=== PATIENT | male | born 1985 | race Caucasian/White ===

== ENCOUNTER 2022-07-08 12:41 | Inpatient (IN) | payer OTHER ==
[~2022-07-08] VITALS: Ht 170.2 cm; Wt 56.2 kg
[~2022-07-08 12:41] MED LIST: BACLOFEN10 MG PO; BISOPROLOL-HCT1 EAC2 PO; CUBICIN500 MG/VIA IV; CYMBALTA60 MG PO; DIAZEPAM5 MG PO; DIPHENHYDRAMINE50 M1 PO; FENTANYL1 EAC1 TOP; HYDROMORPHONE HC2 MG PO; KLONOPIN1 MG PO; M.V.I. ADULT10 ML; NAPROXEN500 MG PO; NICODERM CQ1 EAC1 TOP; SOMA350 MG PO; TOPAMAX25 MG PO; TYLENOL # 31 EA PO; ZANAFLEX2 M1 PO; ZOSYN 3.373.375 GM/5 IVP
[2022-07-08] MEDS ORDERED: SODIUM CHLORIDE 0.9% 1000ML 1,000 ML IV STA (14:20)
[2022-07-08 15:04] LABS: BASOPHILS # (AUTO) 0.1 (0.0-0.1); BASOPHILS % 0.5 % (0.0-1.0); EOSINOPHILS # (AUTO) 0.4 (0.0-0.4); EOSINOPHILS % 3.9 % (0.0-6.0); HEMATOCRIT 34.2 % (38.2-49.6); HEMOGLOBIN 11.3 g/dL (14.0-18.0); LYMPHOCYTES % 9.8 % (18.0-39.1); MEAN CORPUSCULAR HEMOGLOBIN 27.9 pg (28-32); MEAN CORPUSCULAR VOLUME 84.4 fL (81-99); MONOCYTES # (AUTO) 0.9 (0.2-0.8); MONOCYTES % 8.6 % (4.4-11.3); NEUTROPHILS # (AUTO) 7.8 (2.1-6.9); NEUTROPHILS % 76.7 % (38.7-80.0); PLATELET COUNT 304 x10e3/uL (140-360); RED BLOOD COUNT 4.05 x10e6/uL (4.3-5.7); RED CELL DISTRIBUTION WIDTH 13.4 % (11.7-14.4)
[2022-07-08 15:11] LABS: INR 1.01; PROTHROMBIN TIME 14.2 seconds (11.9-14.5)
[2022-07-08 15:12] LABS: PARTIAL THROMBOPLASTIN TIME 43.7 seconds (23.8-35.5)
[2022-07-08] MEDS ORDERED: ONDANSETRON HCL INJ 2MG/ML 2ML 2 MG/ML VIAL IV STA (15:13)
[2022-07-08 15:22] LABS: ALBUMIN 3.4 g/dL (3.5-5.0); ALBUMIN/GLOBULIN RATIO 0.8 (0.8-2.0); CALCIUM 8.9 mg/dL (8.4-10.2); CREATININE, SERUM 0.7 mg/dL (0.72-1.25)
[2022-07-08] MEDS: LINEZOLID 600 MG/D5W 300ML 300 ML IV SCH ×2 (16:11→21:12)
[2022-07-08] MEDS ORDERED: Morphine 4mg INJECTION 4 MG/ML INJ IV ONE (17:00)
[2022-07-08 19:30] VITALS: BP 144/99
[2022-07-08] MEDS: ONDANSETRON HCL INJ 2MG/ML 2ML 2 MG/ML VIAL IV PRN (19:44)
[2022-07-08] MEDS: SODIUM CHLORIDE 0.9% 1000ML 1,000 ML IV SCH (19:53)
[2022-07-08 20:00] VITALS: BP 144/99
[2022-07-08] MEDS: Morphine 4mg INJECTION 4 MG/ML INJ IV PRN (20:22)
[2022-07-08 21:00] VITALS: BP 144/99
[2022-07-08] MEDS: TIZANIDINE HCL 4 MG TAB PO SCH (21:12)
[2022-07-09] VITALS (8 sets, daily range): BP systolic 111–136; BP diastolic 75–89
[2022-07-09] MEDS: ONDANSETRON HCL INJ 2MG/ML 2ML 2 MG/ML VIAL IV PRN ×6 (00:19→22:23)
[2022-07-09] MEDS: Morphine 4mg INJECTION 4 MG/ML INJ IV PRN ×3 (00:23→08:26)
[2022-07-09] MEDS: SODIUM CHLORIDE 0.9% 1000ML 1,000 ML IV SCH ×2 (06:15→12:40)
[2022-07-09 07:18] LABS: BASOPHILS % 0.2 % (0.0-1.0); EOSINOPHILS # (AUTO) 0.4 (0.0-0.4); HEMATOCRIT 34.4 % (38.2-49.6); HEMOGLOBIN 10.8 g/dL (14.0-18.0); LYMPHOCYTES % 11.6 % (18.0-39.1); MEAN CORPUSCULAR HEMOGLOBIN 27.8 pg (28-32); MEAN CORPUSCULAR HGB CONC 31.4 g/dL (31-35); MEAN CORPUSCULAR VOLUME 88.7 fL (81-99); MONOCYTES # (AUTO) 0.8 (0.2-0.8); MONOCYTES % 10.1 % (4.4-11.3); NEUTROPHILS % 72.9 % (38.7-80.0); PLATELET COUNT 296 x10e3/uL (140-360); RED BLOOD COUNT 3.88 x10e6/uL (4.3-5.7); RED CELL DISTRIBUTION WIDTH 13.1 % (11.7-14.4)
[2022-07-09 07:54] LABS: ALBUMIN/GLOBULIN RATIO 0.8 (0.8-2.0); ANION GAP 14.9 mmol/L (8-16); CALCIUM 8.7 mg/dL (8.4-10.2); CREATININE, SERUM 0.79 mg/dL (0.72-1.25); POTASSIUM 3.9 mmol/L (3.5-5.1)
[2022-07-09] MEDS: TIZANIDINE HCL 4 MG TAB PO SCH ×3 (08:28→21:27)
[2022-07-09] MEDS: DULOXETINE HCL 30 MG DELAYED RELEASE PO SCH (08:29)
[2022-07-09] MEDS: BISOPROLOL FUMARATE 10 MG TAB PO SCH (08:29)
[2022-07-09] MEDS: HYDROCHLOROTHIAZIDE 25 MG TAB PO SCH (08:29)
[2022-07-09] MEDS: LINEZOLID 600 MG/D5W 300ML 300 ML IV SCH ×2 (08:33→21:24)
[2022-07-09] MEDS: NICOTINE 14 MG/EA PATCH TOP SCH (08:36)
[2022-07-09] MEDS ORDERED: HCTZ PO SCH (09:00)
[2022-07-09] MEDS ORDERED: [UNRECOGNIZED DRUG - OTHER] PO SCH (09:00)
[2022-07-09] MEDS ORDERED: BISOPROLOL FUMARATE PO SCH (09:00)
[2022-07-09] MEDS: DIAZEPAM 5 MG TAB PO SCH ×2 (09:43→17:45)
[2022-07-09] MEDS ORDERED: HYDROMORPHONE 1MG/1ML INJ IV PRN (11:45)
[2022-07-09] MEDS: ENOXAPARIN SOD INJ 40 MG/0.4 ML SYR SC SCH (16:32)
[2022-07-09] MEDS: HYDROMORPHONE 1MG/1ML INJ IV PRN ×2 (16:33→22:32)
[2022-07-10] VITALS: BP 94/68
[2022-07-10] MEDS: ONDANSETRON HCL INJ 2MG/ML 2ML 2 MG/ML VIAL IV PRN ×5 (03:08→20:48)
[2022-07-10] MEDS: HYDROMORPHONE 1MG/1ML INJ IV PRN ×5 (03:11→20:48)
[2022-07-10] MEDS: SODIUM CHLORIDE 0.9% 1000ML 1,000 ML IV SCH ×2 (03:19→16:24)
[2022-07-10 04:00] VITALS: BP_SYST 121; BP_SYST 94; BP_DIAS 68; BP_DIAS 82
[2022-07-10 06:05] LABS: ANION GAP 14.8 mmol/L (8-16); CALCIUM 8.8 mg/dL (8.4-10.2); CREATININE, SERUM 0.8 mg/dL (0.72-1.25); POTASSIUM 3.8 mmol/L (3.5-5.1)
[2022-07-10 07:55] VITALS: BP 131/98
[2022-07-10 08:30] VITALS: BP 131/98
[2022-07-10] MEDS: NICOTINE 14 MG/EA PATCH TOP SCH (09:00)
[2022-07-10] MEDS: HYDROCHLOROTHIAZIDE 25 MG TAB PO SCH (09:11)
[2022-07-10] MEDS: BISOPROLOL FUMARATE 10 MG TAB PO SCH (09:12)
[2022-07-10] MEDS: LINEZOLID 600 MG/D5W 300ML 300 ML IV SCH ×2 (09:13→20:46)
[2022-07-10] MEDS: DULOXETINE HCL 30 MG DELAYED RELEASE PO SCH (09:13)
[2022-07-10] MEDS: TIZANIDINE HCL 4 MG TAB PO SCH ×3 (09:13→20:48)
[2022-07-10] MEDS: DIAZEPAM 5 MG TAB PO SCH ×2 (09:13→16:59)
[2022-07-10 12:00] VITALS: BP 104/69
[2022-07-10] MEDS: ENOXAPARIN SOD INJ 40 MG/0.4 ML SYR SC SCH (17:00)
[2022-07-10 20:02] VITALS: BP 104/69
[2022-07-11] VITALS (8 sets, daily range): BP systolic 104–132; BP diastolic 71–98
[2022-07-11] MEDS: HYDROMORPHONE 1MG/1ML INJ IV PRN ×6 (02:23→23:35)
[2022-07-11] MEDS: ONDANSETRON HCL INJ 2MG/ML 2ML 2 MG/ML VIAL IV PRN ×3 (07:12→20:32)
[2022-07-11] MEDS: LINEZOLID 600 MG/D5W 300ML 300 ML IV SCH ×2 (08:14→20:31)
[2022-07-11] MEDS: DULOXETINE HCL 30 MG DELAYED RELEASE PO SCH (08:14)
[2022-07-11] MEDS: HYDROCHLOROTHIAZIDE 25 MG TAB PO SCH (08:14)
[2022-07-11] MEDS: BISOPROLOL FUMARATE 10 MG TAB PO SCH (08:15)
[2022-07-11] MEDS: DIAZEPAM 5 MG TAB PO SCH ×2 (08:19→17:00)
[2022-07-11] MEDS: TIZANIDINE HCL 4 MG TAB PO SCH ×3 (08:20→20:31)
[2022-07-11] MEDS: NICOTINE 14 MG/EA PATCH TOP SCH (08:21)
[2022-07-11] MEDS: ENOXAPARIN SOD INJ 40 MG/0.4 ML SYR SC SCH (17:00)
[2022-07-11] MEDS: SODIUM CHLORIDE 0.9% 1000ML 1,000 ML IV SCH (18:50)
[2022-07-12] MEDS: HYDROMORPHONE 1MG/1ML INJ IV PRN ×7 (02:38→21:56)
[2022-07-12] MEDS: SODIUM CHLORIDE 0.9% 1000ML 1,000 ML IV SCH ×3 (05:52→17:35)
[2022-07-12 07:34] VITALS: BP 122/87
[2022-07-12] MEDS: ONDANSETRON HCL INJ 2MG/ML 2ML 2 MG/ML VIAL IV PRN ×3 (08:53→21:57)
[2022-07-12 09:00] VITALS: BP 122/87
[2022-07-12] MEDS: NICOTINE 14 MG/EA PATCH TOP SCH (09:00)
[2022-07-12] MEDS: DULOXETINE HCL 30 MG DELAYED RELEASE PO SCH (09:10)
[2022-07-12] MEDS: DIAZEPAM 5 MG TAB PO SCH ×2 (09:10→17:37)
[2022-07-12] MEDS: TIZANIDINE HCL 4 MG TAB PO SCH ×3 (09:10→17:37)
[2022-07-12] MEDS: LINEZOLID 600 MG/D5W 300ML 300 ML IV SCH ×2 (09:11→21:00)
[2022-07-12 11:37] VITALS: BP 109/60
[2022-07-12 15:39] VITALS: BP 116/90
[2022-07-12] MEDS: EPSOM SALT 454 GM POWD TOP SCH ×2 (15:40→21:00)
[2022-07-12] MEDS: ENOXAPARIN SOD INJ 40 MG/0.4 ML SYR SC SCH (17:37)
[2022-07-12 20:00] VITALS: BP 99/69
[2022-07-13] VITALS (7 sets, daily range): BP systolic 111–132; BP diastolic 61–84
[2022-07-13] MEDS: HYDROMORPHONE 1MG/1ML INJ IV PRN ×8 (01:13→22:53)
[2022-07-13] MEDS: SODIUM CHLORIDE 0.9% 1000ML 1,000 ML IV SCH ×2 (06:15→16:15)
[2022-07-13] MEDS: DULOXETINE HCL 30 MG DELAYED RELEASE PO SCH (07:39)
[2022-07-13] MEDS: LINEZOLID 600 MG/D5W 300ML 300 ML IV SCH ×2 (07:39→20:02)
[2022-07-13] MEDS: DIAZEPAM 5 MG TAB PO SCH ×2 (07:40→17:09)
[2022-07-13] MEDS: TIZANIDINE HCL 4 MG TAB PO SCH ×3 (07:41→20:01)
[2022-07-13] MEDS: EPSOM SALT 454 GM POWD TOP SCH ×3 (07:44→19:52)
[2022-07-13] MEDS: NICOTINE 14 MG/EA PATCH TOP SCH (07:46)
[2022-07-13] MEDS: ONDANSETRON HCL INJ 2MG/ML 2ML 2 MG/ML VIAL IV PRN ×3 (10:45→19:53)
[2022-07-13] MEDS: ENOXAPARIN SOD INJ 40 MG/0.4 ML SYR SC SCH (17:10)
[2022-07-14] VITALS (7 sets, daily range): BP systolic 102–162; BP diastolic 67–98
[2022-07-14] MEDS: ONDANSETRON HCL INJ 2MG/ML 2ML 2 MG/ML VIAL IV PRN ×4 (01:30→22:24)
[2022-07-14] MEDS: HYDROMORPHONE 1MG/1ML INJ IV PRN ×8 (01:30→22:26)
[2022-07-14] MEDS ORDERED: ACETAMINOPHEN 1000 MG/100 ML 100 ML IV ONE (06:20)
[2022-07-14] MEDS ORDERED: MUPIROCIN 2% OINT 22 GM TUBE ONE (06:26)
[2022-07-14] MEDS ORDERED: BUPIVACAINE HCL 0.5% INJ 30 ML VIAL INJ ONE (06:26)
[2022-07-14] MEDS ORDERED: HYDROMORPHONE 1MG/1ML INJ ONE (07:47)
[2022-07-14] MEDS: LINEZOLID 600 MG/D5W 300ML 300 ML IV SCH ×2 (08:56→22:24)
[2022-07-14] MEDS: DIAZEPAM 5 MG TAB PO SCH ×2 (08:57→16:55)
[2022-07-14] MEDS: TIZANIDINE HCL 4 MG TAB PO SCH ×3 (08:57→21:30)
[2022-07-14] MEDS: DULOXETINE HCL 30 MG DELAYED RELEASE PO SCH (08:57)
[2022-07-14] MEDS: NICOTINE 14 MG/EA PATCH TOP SCH (08:58)
[2022-07-14] MEDS: EPSOM SALT 454 GM POWD TOP SCH ×3 (08:59→21:00)
[2022-07-14] MEDS: SODIUM CHLORIDE 0.9% 1000ML 1,000 ML IV SCH ×4 (08:59→22:24)
[2022-07-14] MEDS ORDERED: Morphine 10mg syringe 10 MG/ML INJ ONE (12:17)
[2022-07-14] MEDS ORDERED: FENTANYL CITRATE/PF 100MCG/2 ML INJ ONE (12:17)
[2022-07-14] MEDS ORDERED: MIDAZOLAM HCL 2 MG/2 ML VIAL ONE (12:17)
[2022-07-14] MEDS ORDERED: DEXAMETHASONE SOD PHOS INJ 4 MG/ML SDV ONE (13:10)
[2022-07-14] MEDS ORDERED: GLYCOPYRROLATE INJ 0.2 MG/ML VIAL ONE (13:10)
[2022-07-14] MEDS ORDERED: LIDOCAINE HCL 2% LOCAL INJ 5 ML SDV VIAL INJ ONE (13:10)
[2022-07-14] MEDS ORDERED: ONDANSETRON HCL INJ 2MG/ML 2ML 2 MG/ML VIAL ONE (13:10)
[2022-07-14] MEDS ORDERED: PROPOFOL IV EMULSION 10 MG/ML 20 ML VIAL ONE (13:10)
[2022-07-14] MEDS ORDERED: SEVOFLURANE INHAL SOLN 250 ML PEN BTL ONE (13:10)
[2022-07-14] MEDS ORDERED: POVIDONE IODINE 0.05% 0.05 % ML PO ONE (13:10)
[2022-07-14] MEDS: ENOXAPARIN SOD INJ 40 MG/0.4 ML SYR SC SCH (16:54)
[2022-07-15] VITALS (8 sets, daily range): BP systolic 112–140; BP diastolic 62–98
[2022-07-15] MEDS: HYDROMORPHONE 1MG/1ML INJ IV PRN ×7 (01:47→21:02)
[2022-07-15 07:58] LABS: BASOPHILS % 0.1 % (0.0-1.0); EOSINOPHILS % 0.3 % (0.0-6.0); HEMATOCRIT 33.4 % (38.2-49.6); LYMPHOCYTES # (AUTO) 0.9 (1.0-3.2); MEAN CORPUSCULAR HEMOGLOBIN 27.6 pg (28-32); MEAN CORPUSCULAR HGB CONC 32.9 g/dL (31-35); MEAN CORPUSCULAR VOLUME 83.9 fL (81-99); MONOCYTES # (AUTO) 0.5 (0.2-0.8); MONOCYTES % 6.2 % (4.4-11.3); NEUTROPHILS # (AUTO) 6.5 (2.1-6.9); PLATELET COUNT 288 x10e3/uL (140-360); RED BLOOD COUNT 3.98 x10e6/uL (4.3-5.7); RED CELL DISTRIBUTION WIDTH 13.2 % (11.7-14.4)
[2022-07-15] MEDS: ONDANSETRON HCL INJ 2MG/ML 2ML 2 MG/ML VIAL IV PRN ×5 (08:03→21:03)
[2022-07-15 08:14] LABS: ANION GAP 13.7 mmol/L (8-16); CALCIUM 9.1 mg/dL (8.4-10.2); CREATININE, SERUM 0.83 mg/dL (0.72-1.25); MAGNESIUM 1.6 MG/DL (1.3-2.1); PHOSPHORUS 2.7 MG/DL (2.3-4.7); POTASSIUM 3.7 mmol/L (3.5-5.1)
[2022-07-15] MEDS: SODIUM CHLORIDE 0.9% 1000ML 1,000 ML IV SCH ×2 (08:15→16:42)
[2022-07-15] MEDS: EPSOM SALT 454 GM POWD TOP SCH ×3 (09:00→21:00)
[2022-07-15] MEDS: NICOTINE 14 MG/EA PATCH TOP SCH (09:05)
[2022-07-15] MEDS: DIAZEPAM 5 MG TAB PO SCH ×2 (09:05→16:41)
[2022-07-15] MEDS: DULOXETINE HCL 30 MG DELAYED RELEASE PO SCH (09:06)
[2022-07-15] MEDS: TIZANIDINE HCL 4 MG TAB PO SCH ×3 (09:06→21:00)
[2022-07-15] MEDS: LINEZOLID 600 MG/D5W 300ML 300 ML IV SCH ×2 (09:07→21:00)
[2022-07-15] MEDS: ACETAMINOPHEN/CODEINE 300MG - 30MG TAB PO PRN ×2 (11:18→11:21)
[2022-07-15] MEDS: ENOXAPARIN SOD INJ 40 MG/0.4 ML SYR SC SCH (16:41)
[2022-07-16] VITALS (8 sets, daily range): BP systolic 116–146; BP diastolic 74–95
[2022-07-16] MEDS: HYDROMORPHONE 1MG/1ML INJ IV PRN ×9 (00:10→23:15)
[2022-07-16] MEDS: SODIUM CHLORIDE 0.9% 1000ML 1,000 ML IV SCH ×4 (05:01→21:56)
[2022-07-16 06:25] LABS: BASOPHILS % 0.5 % (0.0-1.0); EOSINOPHILS # (AUTO) 0.3 (0.0-0.4); EOSINOPHILS % 4.6 % (0.0-6.0); HEMATOCRIT 35.3 % (38.2-49.6); HEMOGLOBIN 11.1 g/dL (14.0-18.0); LYMPHOCYTES # (AUTO) 1.2 (1.0-3.2); LYMPHOCYTES % 20.3 % (18.0-39.1); MEAN CORPUSCULAR HEMOGLOBIN 28.1 pg (28-32); MEAN CORPUSCULAR HGB CONC 31.4 g/dL (31-35); MEAN CORPUSCULAR VOLUME 89.4 fL (81-99); MONOCYTES # (AUTO) 0.5 (0.2-0.8); MONOCYTES % 8.2 % (4.4-11.3); NEUTROPHILS # (AUTO) 3.9 (2.1-6.9); NEUTROPHILS % 66.1 % (38.7-80.0); PLATELET COUNT 264 x10e3/uL (140-360); RED BLOOD COUNT 3.95 x10e6/uL (4.3-5.7); RED CELL DISTRIBUTION WIDTH 13.2 % (11.7-14.4)
[2022-07-16 06:46] LABS: ANION GAP 12.7 mmol/L (8-16); CALCIUM 8.6 mg/dL (8.4-10.2); CREATININE, SERUM 0.98 mg/dL (0.72-1.25); MAGNESIUM 1.5 MG/DL (1.3-2.1); PHOSPHORUS 3.3 MG/DL (2.3-4.7); POTASSIUM 3.7 mmol/L (3.5-5.1)
[2022-07-16] MEDS: NICOTINE 14 MG/EA PATCH TOP SCH (09:00)
[2022-07-16] MEDS: EPSOM SALT 454 GM POWD TOP SCH ×3 (09:00→21:00)
[2022-07-16] MEDS: DULOXETINE HCL 30 MG DELAYED RELEASE PO SCH (09:52)
[2022-07-16] MEDS: TIZANIDINE HCL 4 MG TAB PO SCH ×3 (09:52→21:00)
[2022-07-16] MEDS: LINEZOLID 600 MG/D5W 300ML 300 ML IV SCH ×2 (09:52→21:55)
[2022-07-16] MEDS: DIAZEPAM 5 MG TAB PO SCH ×2 (10:47→16:53)
[2022-07-17] VITALS: BP 119/75
[2022-07-17] MEDS: HYDROMORPHONE 1MG/1ML INJ IV PRN ×6 (02:15→17:58)
[2022-07-17 04:00] VITALS: BP 133/81
[2022-07-17 06:33] LABS: BASOPHILS % 0.6 % (0.0-1.0); EOSINOPHILS # (AUTO) 0.4 (0.0-0.4); EOSINOPHILS % 6.6 % (0.0-6.0); HEMATOCRIT 32.6 % (38.2-49.6); HEMOGLOBIN 10.5 g/dL (14.0-18.0); LYMPHOCYTES # (AUTO) 1.1 (1.0-3.2); LYMPHOCYTES % 19.9 % (18.0-39.1); MEAN CORPUSCULAR HEMOGLOBIN 27.5 pg (28-32); MEAN CORPUSCULAR HGB CONC 32.2 g/dL (31-35); MEAN CORPUSCULAR VOLUME 85.3 fL (81-99); MONOCYTES # (AUTO) 0.6 (0.2-0.8); MONOCYTES % 10.1 % (4.4-11.3); NEUTROPHILS # (AUTO) 3.4 (2.1-6.9); NEUTROPHILS % 62.6 % (38.7-80.0); PLATELET COUNT 217 x10e3/uL (140-360); RED BLOOD COUNT 3.82 x10e6/uL (4.3-5.7); RED CELL DISTRIBUTION WIDTH 13.5 % (11.7-14.4)
[2022-07-17] MEDS: ONDANSETRON HCL INJ 2MG/ML 2ML 2 MG/ML VIAL IV PRN ×2 (08:07→17:58)
[2022-07-17 08:10] VITALS: BP 154/87
[2022-07-17 08:32] VITALS: BP 154/87
[2022-07-17] MEDS: NICOTINE 14 MG/EA PATCH TOP SCH (09:00)
[2022-07-17] MEDS: EPSOM SALT 454 GM POWD TOP SCH ×2 (09:00→15:00)
[2022-07-17] MEDS: LINEZOLID 600 MG/D5W 300ML 300 ML IV SCH (09:27)
[2022-07-17] MEDS: TIZANIDINE HCL 4 MG TAB PO SCH ×3 (09:27→15:00)
[2022-07-17] MEDS: DULOXETINE HCL 30 MG DELAYED RELEASE PO SCH (09:27)
[2022-07-17] MEDS: DIAZEPAM 5 MG TAB PO SCH ×2 (09:27→15:40)
[2022-07-17 11:50] VITALS: BP 135/93
[2022-07-17] MEDS ORDERED: DOXYCYCLINE HYCLATE TABLET 100 MG TAB PO SCH (12:30)
[2022-07-17] MEDS: SODIUM CHLORIDE 0.9% 1000ML 1,000 ML IV SCH (15:00)
[2022-07-17 16:07] VITALS: BP 130/84
== END 2022-07-17 19:10 | DRG 513 ==
LOC: ER 13:05 → ERHOLD 16:18 → INTOOBSV 16:18 → MED/SURG3 18:25 → OBSVTOIN 07-11 15:51
PROVIDERS: ADMIT Internal Medicine; ATTEND Internal Medicine
PROC: 02HV33Z Insertion of Infusion Device into Superior Vena Cava, Percutaneous Approach (ICD-10-PCS; principal; 2022-07-12)
PROC: 0X6S0Z0 Detachment at Right Ring Finger, Complete, Open Approach (ICD-10-PCS; 2022-07-14)
PROC: 0X6Q0Z0 Detachment at Right Middle Finger, Complete, Open Approach (ICD-10-PCS; 2022-07-14)
PROC: 0X6N0Z0 Detachment at Right Index Finger, Complete, Open Approach (ICD-10-PCS; 2022-07-14)
DX: M86.8X4 Other osteomyelitis, hand (principal); R53.2 Functional quadriplegia; L03.011 Cellulitis of right finger; M65.141 Other infective (teno)synovitis, right hand; G62.9 Polyneuropathy, unspecified; F41.9 Anxiety disorder, unspecified; Z87.891 Personal history of nicotine dependence; I10 Essential (primary) hypertension; K08.89 Other specified disorders of teeth and supporting structures; Z89.512 Acquired absence of left leg below knee; Z89.511 Acquired absence of right leg below knee; F42.9 Obsessive-compulsive disorder, unspecified; M24.542 Contracture, left hand; M24.541 Contracture, right hand; H54.7 Unspecified visual loss; Z20.822 Contact with and (suspected) exposure to COVID-19
CPT/HCPCS: 0223U; 36415; 36569; 71045; 80048; 80053; 83735; 84100; 85025; 85610; 85730; 87040; 88304; 88305; 88311; 96360; 96361; 99251; 99284; G0378; J1100; J1170; J1650; J2001; J2020; J2250; J2270; J2405; J2543; J3010; J7030

== ENCOUNTER 2022-12-16 20:23 | Inpatient (IN) | payer OTHER ==
[~2022-12-16] VITALS: Ht 170.2 cm; Wt 56.2 kg
[2022-12-16] MEDS ORDERED: SODIUM CHLORIDE 0.9% 1000ML 1,000 ML IV ONE (20:45)
[2022-12-16 20:57] LABS: BASOPHILS % 0.5 % (0.0-1.0); EOSINOPHILS # (AUTO) 0.4 (0.0-0.4); EOSINOPHILS % 4.3 % (0.0-6.0); HEMATOCRIT 37.3 % (38.2-49.6); HEMOGLOBIN 12.2 g/dL (14.0-18.0); LYMPHOCYTES # (AUTO) 1.4 (1.0-3.2); LYMPHOCYTES % 16.9 % (18.0-39.1); MEAN CORPUSCULAR HEMOGLOBIN 27.3 pg (28-32); MEAN CORPUSCULAR HGB CONC 32.7 g/dL (31-35); MEAN CORPUSCULAR VOLUME 83.4 fL (81-99); MONOCYTES # (AUTO) 0.6 (0.2-0.8); MONOCYTES % 7.9 % (4.4-11.3); NEUTROPHILS # (AUTO) 5.7 (2.1-6.9); NEUTROPHILS % 70.2 % (38.7-80.0); PLATELET COUNT 347 x10e3/uL (140-360); RED BLOOD COUNT 4.47 x10e6/uL (4.3-5.7); RED CELL DISTRIBUTION WIDTH 14.9 % (11.7-14.4)
[2022-12-16 21:22] LABS: ALBUMIN 3.8 g/dL (3.5-5.0); ALBUMIN/GLOBULIN RATIO 0.9 (0.8-2.0); ANION GAP 15.9 mmol/L (8-16); CALCIUM 9.4 mg/dL (8.4-10.2); CREATININE, SERUM 0.8 mg/dL (0.72-1.25); POTASSIUM 3.9 mmol/L (3.5-5.1)
[2022-12-16] MEDS ORDERED: Morphine 4mg INJECTION 4 MG/ML INJ ONE (21:29)
[2022-12-16] MEDS ORDERED: ONDANSETRON HCL INJ 2MG/ML 2ML 2 MG/ML VIAL ONE (21:30)
[2022-12-16] MEDS ORDERED: Morphine 4mg INJECTION 4 MG/ML INJ IV ONE (21:30)
[2022-12-16] MEDS ORDERED: METHYLPREDNISOLONE SOD SUCC 125 MG/2ML VIAL ONE (21:34)
[2022-12-16] MEDS ORDERED: FAMOTIDINE 20 MG/2 ML VIAL IV STA (21:34)
[2022-12-16] MEDS ORDERED: FAMOTIDINE 20 MG/2 ML VIAL IV ONE (21:34)
[2022-12-16] MEDS ORDERED: DIPHENHYDRAMINE HCL INJ 50 MG/ML VIAL ONE (21:34)
[2022-12-16] MEDS ORDERED: Morphine 4mg INJECTION 4 MG/ML INJ IV PRN (21:45)
[2022-12-16] MEDS ORDERED: DIPHENHYDRAMINE HCL INJ 50 MG/ML VIAL IV ONE (21:45)
[2022-12-16] MEDS ORDERED: METHYLPREDNISOLONE SOD SUCC 125 MG/2ML VIAL IV ONE (21:45)
[2022-12-16] MEDS ORDERED: DIPHENHYDRAMINE HCL INJ 50 MG/ML VIAL IV PRN (22:00)
[2022-12-16] MEDS: CEFEPIME 2 GM in SODIUM CHLORIDE 0.9% 100 ML IV SCH (22:15)
[2022-12-16] MEDS: SODIUM CHLORIDE 0.9% 1000ML 1,000 ML IV SCH (22:16)
[2022-12-16] MEDS: HYDROMORPHONE 1MG/1ML INJ IV PRN (23:30)
[2022-12-16] MEDS: Doxycycline IV 100 MG in SODIUM CHLORIDE 0.9% 100 ML IV SCH (23:37)
[2022-12-17] VITALS (10 sets, daily range): BP systolic 124–151; BP diastolic 75–114
[2022-12-17] MEDS: METHYLPREDNISOLONE SOD SUCC 40 MG/ML VIAL 1ML IV SCH ×4 (03:04→21:12)
[2022-12-17] MEDS: ONDANSETRON HCL INJ 2MG/ML 2ML 2 MG/ML VIAL IV PRN ×2 (03:32→12:46)
[2022-12-17] MEDS: HYDROMORPHONE 1MG/1ML INJ IV PRN ×5 (03:32→21:26)
[2022-12-17] MEDS ORDERED: MORPHINE SULFAT30 M2 PO (05:34)
[2022-12-17] MEDS ORDERED: VITAMIN C1000 MG PO (05:34)
[2022-12-17] MEDS ORDERED: LAMICTAL5 MG PO (05:34)
[2022-12-17] MEDS ORDERED: HYDROCODON-ACE1 EAC9 PO (05:34)
[2022-12-17] MEDS: CEFEPIME 2 GM in SODIUM CHLORIDE 0.9% 100 ML IV SCH ×3 (06:20→22:40)
[2022-12-17] MEDS: SODIUM CHLORIDE 0.9% 1000ML 1,000 ML IV SCH ×3 (06:21→22:40)
[2022-12-17] MEDS ORDERED: DOCUSATE SODIUM 100 MG CAP PO PRN (07:15)
[2022-12-17] MEDS ORDERED: ACETAMINOPHEN 325 MG TAB PO PRN (07:15)
[2022-12-17] MEDS ORDERED: MELATONIN 3 MG TAB PO PRN (07:15)
[2022-12-17] MEDS ORDERED: SIMETHICONE 80 MG CHEW PO PRN (07:15)
[2022-12-17 07:28] LABS: HEMATOCRIT 35.1 % (38.2-49.6); HEMOGLOBIN 11.4 g/dL (14.0-18.0); LYMPHOCYTES # (AUTO) 0.4 (1.0-3.2); LYMPHOCYTES % 6.1 % (18.0-39.1); MEAN CORPUSCULAR HEMOGLOBIN 27.1 pg (28-32); MEAN CORPUSCULAR HGB CONC 32.5 g/dL (31-35); MEAN CORPUSCULAR VOLUME 83.6 fL (81-99); MONOCYTES % 0.7 % (4.4-11.3); NEUTROPHILS # (AUTO) 5.3 (2.1-6.9); NEUTROPHILS % 92.9 % (38.7-80.0); PLATELET COUNT 321 x10e3/uL (140-360); RED CELL DISTRIBUTION WIDTH 14.6 % (11.7-14.4)
[2022-12-17 07:52] LABS: ALBUMIN 3.2 g/dL (3.5-5.0); ALBUMIN/GLOBULIN RATIO 0.9 (0.8-2.0); ANION GAP 13.3 mmol/L (8-16); CALCIUM 8.6 mg/dL (8.4-10.2); CREATININE, SERUM 0.74 mg/dL (0.72-1.25); POTASSIUM 4.3 mmol/L (3.5-5.1)
[2022-12-17] MEDS: FAMOTIDINE 20 MG/2 ML VIAL IV SCH ×2 (08:01→16:13)
[2022-12-17] MEDS: DULOXETINE HCL 30 MG DELAYED RELEASE PO SCH ×2 (08:02→16:12)
[2022-12-17] MEDS: TIZANIDINE HCL 4 MG TAB PO SCH ×3 (08:02→20:40)
[2022-12-17] MEDS: Doxycycline IV 100 MG in SODIUM CHLORIDE 0.9% 100 ML IV SCH ×2 (08:02→21:15)
[2022-12-17] MEDS: DIAZEPAM 5 MG TAB PO SCH ×3 (08:02→20:42)
[2022-12-17] MEDS: NICOTINE 14 MG/EA PATCH TOP SCH (08:03)
[2022-12-17] MEDS: BISOPROLOL FUMARATE 10 MG TAB PO SCH (09:30)
[2022-12-17] MEDS: HYDROCHLOROTHIAZIDE 25 MG TAB PO SCH (09:30)
[2022-12-17] MEDS: ENOXAPARIN 30 MG/0.3 ML SYR SC SCH (16:30)
[2022-12-17] MEDS: HYDROCODONE/APAP 10MG-325MG TAB PO PRN (23:37)
[2022-12-18] VITALS (7 sets, daily range): BP systolic 136–166; BP diastolic 89–100
[2022-12-18] MEDS: ONDANSETRON HCL INJ 2MG/ML 2ML 2 MG/ML VIAL IV PRN ×5 (01:35→17:57)
[2022-12-18] MEDS: HYDROMORPHONE 1MG/1ML INJ IV PRN ×6 (01:36→23:24)
[2022-12-18] MEDS: METHYLPREDNISOLONE SOD SUCC 40 MG/ML VIAL 1ML IV SCH ×4 (03:32→20:43)
[2022-12-18] MEDS: CEFEPIME 2 GM in SODIUM CHLORIDE 0.9% 100 ML IV SCH ×3 (05:57→22:38)
[2022-12-18] MEDS: SODIUM CHLORIDE 0.9% 1000ML 1,000 ML IV SCH ×3 (05:57→20:42)
[2022-12-18] MEDS: DULOXETINE HCL 30 MG DELAYED RELEASE PO SCH ×2 (08:43→17:57)
[2022-12-18] MEDS: DIAZEPAM 5 MG TAB PO SCH ×3 (08:43→20:43)
[2022-12-18] MEDS: LAMOTRIGINE 100 MG TAB PO SCH (08:43)
[2022-12-18] MEDS: Doxycycline IV 100 MG in SODIUM CHLORIDE 0.9% 100 ML IV SCH ×2 (08:46→20:42)
[2022-12-18] MEDS: FAMOTIDINE 20 MG/2 ML VIAL IV SCH ×2 (08:46→17:57)
[2022-12-18] MEDS: BISOPROLOL FUMARATE 10 MG TAB PO SCH (08:59)
[2022-12-18] MEDS: HYDROCHLOROTHIAZIDE 25 MG TAB PO SCH (08:59)
[2022-12-18] MEDS: TIZANIDINE HCL 4 MG TAB PO SCH ×3 (09:00→20:56)
[2022-12-18] MEDS: NICOTINE 14 MG/EA PATCH TOP SCH (09:00)
[2022-12-18] MEDS: ENOXAPARIN 30 MG/0.3 ML SYR SC SCH (17:57)
[2022-12-18] MEDS: HYDROCODONE/APAP 10MG-325MG TAB PO PRN (20:44)
[2022-12-19] VITALS: BP 144/80
[2022-12-19] MEDS: METHYLPREDNISOLONE SOD SUCC 40 MG/ML VIAL 1ML IV SCH ×2 (03:41→08:04)
[2022-12-19] MEDS: ONDANSETRON HCL INJ 2MG/ML 2ML 2 MG/ML VIAL IV PRN ×2 (03:43→08:04)
[2022-12-19] MEDS: HYDROMORPHONE 1MG/1ML INJ IV PRN ×2 (03:43→08:04)
[2022-12-19 04:00] VITALS: BP 134/73
[2022-12-19] MEDS: SODIUM CHLORIDE 0.9% 1000ML 1,000 ML IV SCH (05:51)
[2022-12-19] MEDS: CEFEPIME 2 GM in SODIUM CHLORIDE 0.9% 100 ML IV SCH (05:52)
[2022-12-19] MEDS ORDERED: Doxycycline IV 100 MG Vial IV ONE (07:42)
[2022-12-19] MEDS ORDERED: CEPHALEXIN500 MG PO (07:53)
[2022-12-19] MEDS ORDERED: DOXYCYCLINE HY100 MG PO (07:53)
[2022-12-19] MEDS: DULOXETINE HCL 30 MG DELAYED RELEASE PO SCH (08:02)
[2022-12-19] MEDS: DIAZEPAM 5 MG TAB PO SCH (08:03)
[2022-12-19] MEDS: LAMOTRIGINE 100 MG TAB PO SCH (08:03)
[2022-12-19] MEDS: FAMOTIDINE 20 MG/2 ML VIAL IV SCH (08:21)
[2022-12-19] MEDS: TIZANIDINE HCL 4 MG TAB PO SCH (08:21)
[2022-12-19] MEDS: NICOTINE 14 MG/EA PATCH TOP SCH (08:22)
[2022-12-19 08:31] VITALS: BP_SYST 105; BP_SYST 176; BP_DIAS 103; BP_DIAS 72
[2022-12-19 08:35] VITALS: BP 105/72
[2022-12-19] MEDS: Doxycycline IV 100 MG in SODIUM CHLORIDE 0.9% 100 ML IV SCH (09:00)
[2022-12-19] MEDS ORDERED: HYDROMORPHONE 1MG/1ML INJ IV ONE (11:30)
[2022-12-19] MEDS ORDERED: ONDANSETRON HCL INJ 2MG/ML 2ML 2 MG/ML VIAL IV ONE (11:30)
[2022-12-19] MEDS ORDERED: DOXYCYCLINE HYCLATE TABLET 100 MG TAB PO SCH (12:00)
[2022-12-19] MEDS ORDERED: FAMOTIDINE 20 MG TAB PO SCH (16:30)
== END 2022-12-19 12:05 | DRG 603 ==
LOC: ER 20:30 → ERHOLD 21:44 → MED/SURG3 12-17 00:52
PROVIDERS: ADMIT Internal Medicine; ATTEND Internal Medicine
DX: L03.011 Cellulitis of right finger (principal); G60.0 Hereditary motor and sensory neuropathy; I10 Essential (primary) hypertension; F41.9 Anxiety disorder, unspecified; F32.A Depression, unspecified; M54.9 Dorsalgia, unspecified; G89.29 Other chronic pain; T36.0X5A Adverse effect of penicillins, initial encounter; H54.8 Legal blindness, as defined in USA; F17.210 Nicotine dependence, cigarettes, uncomplicated; Z20.822 Contact with and (suspected) exposure to COVID-19; Z89.022 Acquired absence of left finger(s); Z89.021 Acquired absence of right finger(s); Z89.512 Acquired absence of left leg below knee; Z89.511 Acquired absence of right leg below knee
CPT/HCPCS: 0223U; 36415; 80053; 83605; 85025; 87040; 96361; 99252; 99285; J0692; J1170; J1200; J1650; J2270; J2405; J2543; J2920; J2930; J7030; J7050

== ENCOUNTER 2024-12-30 14:31 | Emergency (ER) | payer OTHER ==
[~2024-12-30] VITALS: Ht 170.2 cm; Wt 56.7 kg
[~2024-12-30 14:31] MED LIST changes: +BETIMOL5 M1 OU; +BUPROPION XL150 MG PO; +CEPHALEXIN500 MG PO; +CIPRO500 MG PO; +DEPAKOTE ER250 MG PO; +DICYCLOMINE HCL20 MG PO; +DOXYCYCLINE HY100 MG PO; +HYDRALAZINE HCL25 MG PO; +HYDROCODON-ACE1 EAC9 PO; +IMODIUM A-1 MG/7.5 M PO; +LACTULOSE20 GM/30 M PO; +LAMICTAL5 MG PO; +LIDOCAINE-PRILO30 GM; +MORPHINE SULFAT30 M2 PO; +N-ACETYL-L-CYS600 MG PO; +ONDANSETRON HCL4 MG PO; +SYSTANE 0.3-0.1 EACH OU; +TYLENOL EXTRA500 MG PO; +VITAMIN C1000 MG PO
[2024-12-30 14:43] VITALS: PULSE 87
[2024-12-30 15:40] LABS: BASOPHILS # (AUTO) 0.1 (0.0-0.1); BASOPHILS % 0.7 % (0.0-1.0); EOSINOPHILS # (AUTO) 0.3 (0.0-0.4); EOSINOPHILS % 4.3 % (0.0-6.0); HEMATOCRIT 37.6 % (38.2-49.6); HEMOGLOBIN 12.4 g/dL (14.0-18.0); LYMPHOCYTES % 13.3 % (18.0-39.1); MEAN CORPUSCULAR HEMOGLOBIN 28.4 pg (28-32); MEAN CORPUSCULAR VOLUME 86.2 fL (81-99); MONOCYTES # (AUTO) 0.7 (0.2-0.8); MONOCYTES % 10.2 % (4.4-11.3); NEUTROPHILS # (AUTO) 5.2 (2.1-6.9); NEUTROPHILS % 71.2 % (38.7-80.0); PLATELET COUNT 295 x10e3/uL (140-360); RED BLOOD COUNT 4.36 x10e6/uL (4.3-5.7); RED CELL DISTRIBUTION WIDTH 15.8 % (11.7-14.4); WHITE BLOOD COUNT 7.28 x10e3/uL (4.8-10.8)
[2024-12-30 15:59] LABS: ALBUMIN 3.8 g/dL (3.5-5.0); ALKALINE PHOSPHATASE 70 IU/L (40-150); ANION GAP 15.5 mmol/L (8-16); BILIRUBIN,TOTAL 0.3 mg/dL (0.2-1.2); BLOOD UREA NITROGEN 23 mg/dL (7-26); BUN/CREATININE RATIO 25 (6-25); CALCIUM 9.1 mg/dL (8.4-10.2); CARBON DIOXIDE 26 mmol/L (22-29); CHLORIDE 104 mmol/L (98-107); CREATINE KINASE 62 IU/L (30-200); CREATININE, SERUM 0.92 mg/dL (0.72-1.25); EST GLOMERULAR FILTRATION RATE 109 ML/MIN (>=60); GLUCOSE 92 mg/dL (74-118); POTASSIUM 4.5 mmol/L (3.5-5.1); SODIUM 141 mmol/L (136-145); TOTAL PROTEIN 7.6 g/dL (6.5-8.1)
[2024-12-30 16:01] LABS: ALANINE AMINOTRANSFERASE < 6 IU/L (0-55)
[2024-12-30 16:02] LABS: ACETAMINOPHEN < 3.0 ug/mL (10-30); ETHANOL < 10.0 mg/dL (0.0-10.0); SALICYLATE < 5.0 mg/dL (0-30)
[2024-12-30 16:20] LABS: THYROID STIMULATING HORMONE 0.935 uIU/mL (0.350-4.940)
[2024-12-30 16:21] LABS: TROPONIN I < 0.001 ng/mL (0-0.300)
[2024-12-30 18:00] LABS: CLARITY,URINE SL CLOUDY (CLEAR); COLOR,URINE YELLOW (YELLOW)
[2024-12-30 18:01] LABS: BILIRUBIN,URINE NEGATIVE (NEGATIVE); GLUCOSE, URINE NEGATIVE (NEGATIVE); KETONES,URINE NEGATIVE (NEGATIVE); LEUKOCYTE ESTERASE ,URINE NEGATIVE (NEGATIVE); NITRITE,URINE NEGATIVE (NEGATIVE); PH,URINE 8.5 (5 - 7); PROTEIN,URINE DIPSTICK NEGATIVE (NEGATIVE)
[2024-12-30 18:03] LABS: OPIATES SCREEN,URINE POSITIVE (NEGATIVE)
[2024-12-30 18:04] LABS: AMPHETAMINES SCREEN,URINE NEGATIVE (NEGATIVE); BENZODIAZEPINES SCREEN,URINE POSITIVE (NEGATIVE); CANNABINOIDS SCREEN,URINE POSITIVE (NEGATIVE); COCAINE SCREEN,URINE NEGATIVE (NEGATIVE); METHADONE SCREEN, URINE NEGATIVE (NEGATIVE); PHENCYCLIDINE SCREEN,URINE NEGATIVE (NEGATIVE)
[2024-12-30] MEDS: HYDROCODONE/APAP 10MG-325MG TAB PO ONE (18:04)
[2024-12-30 18:11] LABS: BACTERIA,URINE MODERATE /HPF
[2024-12-30 18:12] LABS: MUCUS,URINE MODERATE
[2024-12-30 19:00] VITALS: PULSE 58; RESP 17; TEMP 98.2
[2024-12-30] MEDS: MORPHINE SULFATE ER 15 MG TAB PO ONE (21:34)
[2024-12-30] MEDS: DIVALPROEX SODIUM 250 MG TAB...DR PO ONE (23:29)
[2024-12-31 01:29] VITALS: BP 145/100; PULSE 60; RESP 17; TEMP 98; O2SAT 98
[2024-12-31] MEDS: HYDROCODONE/APAP 10MG-325MG TAB PO ONE (01:45)
== END 2024-12-31 01:51 ==
LOC: ER 14:53
DX: F31.9 Bipolar disorder, unspecified (principal); I10 Essential (primary) hypertension; M54.9 Dorsalgia, unspecified; G89.29 Other chronic pain; H40.9 Unspecified glaucoma; F41.9 Anxiety disorder, unspecified; Z89.512 Acquired absence of left leg below knee; Z89.511 Acquired absence of right leg below knee
CPT/HCPCS: 36415; 80053; 80164; 80307; 80320; 80329; 81001; 82550; 84443; 84484; 85025; 93005; 99284

== ENCOUNTER 2025-02-13 15:57 | Emergency (ER) | payer MEDICAID, OTHER ==
[~2025-02-13] VITALS: Ht 170.2 cm; Wt 56.7 kg
[2025-02-13] MEDS ORDERED: ACETAMINOPHEN 325 MG TAB PO ONE (16:15)
[2025-02-13 16:26] VITALS: PULSE 61; RESP 18; TEMP 98.3
[2025-02-13 17:47] VITALS: BP 121/84; PULSE 74; RESP 18; TEMP 98.3; O2SAT 98
[2025-02-14] MEDS ORDERED: LIDOCAINE 4% PATCH TP SCH (09:00)
== END 2025-02-13 17:52 ==
LOC: ER 16:06
DX: M54.9 Dorsalgia, unspecified (principal); G89.29 Other chronic pain; I10 Essential (primary) hypertension; F41.9 Anxiety disorder, unspecified; F32.A Depression, unspecified; Z89.512 Acquired absence of left leg below knee; Z89.511 Acquired absence of right leg below knee
CPT/HCPCS: 99284